=== PATIENT | female | born 1935 | race Caucasian/White ===

== ENCOUNTER 2016-12-01 08:03 | Day surgery (SDC) | payer MEDICARE ==
[~2016-12-01] VITALS: Ht 170.2 cm; Wt 72.0 kg
[~2016-12-01 08:03] MED LIST: 0.9% Sodium Chloride 1,000 ML IV SCH; CALC500T9 PO; CHOL400T3 PO; HYDR-3090 PO; KEN25CR EXT; MAGN27TA2 PO; MELA1TAB9 PO; PANT40TA2 PO; Sodium Chloride LOK Flush 10 mL Syringe IV PRN; TRAM50TA2 PO; VIT1TABL83 PO; VITA40TA PO; fentaNYL-PF 50 mCg/mL 2 mL Inj IVPUSH PRN
[2016-12-01 08:25] VITALS: BP 140/78; PULSE 82; RESP 16; O2SAT 95
[2016-12-01 09:16] VITALS: BP 111/62; PULSE 72; RESP 14; O2SAT 95
[2016-12-01 09:24] VITALS: BP 114/64; PULSE 71; RESP 14; O2SAT 94
[2016-12-01 09:34] VITALS: BP 121/72; PULSE 68; RESP 14; O2SAT 95
--- NOTE | 2016-12-01 13:39 | ENDO ---
[address] [address] ENDOSCOPY PROCEDURE PATIENT: KELLY BRENNAN : 1935 MR#: [id number] ADMIT: 12/01/2016 JOB ID: [id number] DATE: 12/01/2016 PROCEDURES: 1. Esophagogastroduodenoscopy with biopsy. 2. Colonoscopy with biopsy. PREOPERATIVE DIAGNOSIS(ES): Epigastric pain, diarrhea. POSTOPERATIVE DIAGNOSIS(ES): 1. Mild nonerosive gastritis. 2. Severe sigmoid diverticulosis. ANESTHESIA: 1. Fentanyl 125 mcg. 2. Versed 6 mg IV administered. COMPLICATIONS: None. BLOOD LOSS: Minimal. DESCRIPTION OF PROCEDURE: After risks and benefits were explained to the patient, informed consent was obtained. After anesthesia administered, upper endoscope was then inserted into the mouth, intubating the esophagus, stomach, second portion of duodenum. Mucosa carefully examined. After procedure was done, the scope withdrawn and procedure terminated. Colonoscope was then inserted from rectum to the terminal ileum. Mucosa carefully examined. Prep of the patient was fair. After the procedure was done, the scope withdrawn and procedure terminated. FINDINGS: Upon inspection of the esophagus, the esophagus is normal without masses, ulcers, or lesions. Z-line located 40 cm from incisors. Upon entering the stomach, the stomach also there was mild nonerosive gastritis that was seen throughout the entire stomach. There were no masses, ulcers, lesions seen. Retroflexion was normal. Duodenal bulb, first and second portion normal. Biopsies taken from the antrum and body of the stomach and duodenum. Upon inspection of the anus, no masses, hemorrhoids, ulcers, or fissures that were seen. Throughout the entire examination, there were severe sigmoid diverticulosis that was seen. There were no polyps or masses or lesions that were seen. Biopsies were taken of the terminal ileum and random colon. Retroflexion was normal. IMPRESSIONS: 1. Mild nonerosive gastritis status post biopsy. 2. Severe sigmoid diverticulosis. RECOMMENDATIONS: 1. Await pathology results. 2. Followup with Cecelia Benavides in GI clinic.
--- NOTE | 2016-12-02 11:19 | PATH ---
SURGICAL PATHOLOGY Attending Physician:Rey Andrews MD CASE STATUS: Signed Out PATIENT NAME: KELLY BRENNAN PID: [id number] : 1935 DATE COLLECTED:12/01/2016 15:37 SPECIMEN: 1: Duodenum, Biopsy 2: Stomach, Antrum, Biopsy 3: Gastric, Biopsy 4: Ileum, Biopsy 5: Colon, Biopsy CLINICAL HISTORY: 1. DUODENAL BIOPSY 2. GASTRIC ANTRUM 3. GASTRIC BODY 4. TERMINAL ILEUM 5. RANDOM COLON BIOPSY FINAL DIAGNOSIS: 1.DUODENUM, BIOPSY: NO DIAGNOSTIC ABNORMALITY. Negative for intraepithelial lymphocytosis, villous blunting, or other features of celiac sprue. Negative for Giardia organisms, dysplasia and malignancy. 2.GASTRIC ANTRUM, BIOPSY: NORMAL GASTRIC ANTRUM. Negative for Helicobacter organisms. Negative for intestinal metaplasia. No evidence of dysplasia or malignancy. 3.GASTRIC BODY, BIOPSY: NORMAL GASTRIC CORPUS. Negative for Helicobacter organisms. Negative for intestinal metaplasia. No evidence of dysplasia or malignancy. 4.TERMINAL ILEUM, BIOPSY: NORMAL SMALL BOWEL MUCOSA. No significant inflammation identified. No evidence of dysplasia or malignancy. 5.COLON, RANDOM BIOPSIES: NORMAL COLONIC MUCOSA. No significant inflammation identified. No evidence of dysplasia or malignancy. ICD10 code R10.9 GROSS DESCRIPTION: The specimen is received in five formalin filled containers labeled with the patient's name. 1). The specimen is sublabeled "and consists of 3 portions of tissue which aggregate to 3 x 0.3 x 0.2 CM. The specimen is entirely submitted in cassette 1A. 2). The specimen is sublabeled "gastric antrum" and consists of a 0.4 x 0.3 x 0.3 CM portion of tissue which is entirely submitted in cassette 2A. 3). The specimen is sublabeled "gastric body" and consists of a 0.7 x 0.2 x 0.2 CM orcein of tissue which is entirely submitted in cassette 3A. 4). The specimen is sublabeled "terminal ileum" and consists of a 0.2 x 0.2 x 0.2 CM portion of tissue. The specimen is entirely submitted in cassette 4A. 5). The specimen is sublabeled "random colon" and consists of 4 portions of tissue which aggregate to 0.4 x 0.4 x 0.2 CM. The specimen is entirely submitted in cassette 5A. 12/01/2016 [facility] MICRO DESCRIPTION: See diagnosis. ICD-9 CODES: CPT CODES: 1: 63270 2: 44369 3: 60881 4: 16051 5: 66930 Electronically Signed Out Espinoza Cheung MD [facility] [address], [place] [address] Technical component performed at [facility], [address], [place], [address]
== END 2016-12-01 23:59 | disposition home or self-care (01) ==
LOC: END 08:03
PROVIDERS: ATTEND Internal Medicine Gastroenterology
DX: K29.70 Gastritis, unspecified, without bleeding (principal); K57.30 Diverticulosis of large intestine without perforation or abscess without bleeding; K21.9 Gastro-esophageal reflux disease without esophagitis; M19.90 Unspecified osteoarthritis, unspecified site
CPT/HCPCS: 43239; 45380; 88305; 99153; G0500; J7030